=== PATIENT | female | born 1990 | race Caucasian/White ===

== ENCOUNTER 2017-05-28 13:20 | Emergency (ER) | payer BC, OTHER ==
[2017-05-28 13:30] VITALS: BP 110/74
--- NOTE | 2017-05-28 14:23 | UC ---
Complaint Female HPI - HPI Summary HPI Summary: concerned she may have a std.. Had intercourse with a condom 10 days ago---got painful irritation around vagina 5 days ago - History Of Current Complaint Chief Complaint: UCGU Stated Complaint: PERSONAL/BODY ACHES, FEVER Time Seen by Provider: 05/28/17 13:32 Hx Obtained From: Patient Hx Last Menstrual Period: 05/15/17 ?: No Onset/Duration: Sudden Onset, Lasting Days - 5, Still Present Timing: Constant Severity Initially: Moderate Severity Currently: Moderate Character: Burning Aggravating Factor(s): Movement, Urination Alleviating Factor(s): Nothing Associated Signs And Symptoms: Positive: Negative - Allergies/Home Medications Allergies/Adverse Reactions: Allergies Allergy/AdvReac Type Severity Reaction Status Date / Time Amoxicillin AdvReac Rash Verified 05/28/17 13:31 PMH/Surg Hx/FS Hx/Imm Hx Previously Healthy: Yes - Surgical History Surgical History: Yes Surgery Procedure, Year, and Place: Tonsillectomy - Family History Known Family History: Positive: None - Social History Occupation: Employed Full-time Lives: With Family Alcohol Use: Weekly Substance Use Type: None Smoking Status (MU): Light Every Day Tobacco Smoker Amount Used/How Often: 1 pack per week Review of Systems Constitutional: Negative Skin: Other - skin abrasion 4-5 and 7-8 on posterior forchette---patient reports this was never vesicular Eyes: Negative ENT: Negative Respiratory: Negative Cardiovascular: Negative Gastrointestinal: Negative Genitourinary: Negative Motor: Negative Neurovascular: Negative Musculoskeletal: Negative Neurological: Negative Psychological: Negative All Other Systems Reviewed And Are Negative: Yes Physical Exam Triage Information Reviewed: Yes Appearance: Well-Appearing, No Pain Distress, Well-Nourished Vital Signs: Initial Vital Signs Temp 97.8 F 05/28/17 13:24 Pulse 88 05/28/17 13:24 Resp 16 05/28/17 13:24 BP 110/74 05/28/17 13:24 Pulse Ox 100 05/28/17 13:24 Vital Signs Reviewed: Yes Eye Exam: Normal Eyes: Positive: Conjunctiva Clear ENT Exam: Normal ENT: Positive: Normal ENT inspection, Hearing grossly normal, TMs normal. Negative: Nasal congestion, Nasal drainage, Tonsillar swelling, Tonsillar exudate, Trismus, Muffled/hoarse voice Dental Exam: Normal Neck exam: Normal Neck: Positive: Supple, Nontender, No Lymphadenopathy Respiratory Exam: Normal Respiratory: Positive: Chest non-tender, Lungs clear, Normal breath sounds, No respiratory distress, No accessory muscle use Cardiovascular Exam: Normal Cardiovascular: Positive: RRR, No Murmur, Pulses Normal, Brisk Capillary Refill Abdominal Exam: Normal Abdomen Description: Positive: Nontender, No Organomegaly, Soft Bowel Sounds: Positive: Present Musculoskeletal Exam: Normal Musculoskeletal: Positive: Strength Intact, ROM Intact, No Edema Neurological Exam: Normal Neurological: Positive: Alert, Muscle Tone Normal Psychological Exam: Normal Skin Exam: Normal UC Physical Exam Vital Signs On Initial Exam: Initial Vitals Temp Pulse Resp BP Pulse Ox 97.8 F 88 16 110/74 100 05/28/17 13:24 05/28/17 13:24 05/28/17 13:24 05/28/17 13:05/28/17 13:24 - Genitalia Exam Female Genitourinary: Cervix Closed, Vulva: Abrasion - 4-5 and 7-8 posterior forchette Re-Evaluation - Re-Evaluation First Eval Change: Unchanged - tolerated pelvic exam well Complaint Female Dx - Course Course Of Treatment: Affirm, appitma, hsv, ua, ua preg, start valtrex follow at [facility] - Differential Dx/Diagnosis Differential Diagnosis/HQI/PQRI: Appendicitis, Pelvic Inflammatory Disease, Renal Colic, Sexually Transmitted Disease, Urinary Tract Infection 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
--- NOTE | 2017-05-30 07:25 | UC ---
Progress - Progress Note Progress Note: Bacterial vaginosis on testing. Rx sent in. Re-Evaluation - Re-Evaluation First Eval Change: Unchanged - tolerated pelvic exam well
--- NOTE | 2017-05-31 07:09 | UC ---
Progress - Progress Note Progress Note: Bacterial vaginosis on testing. Rx sent in. 05/1717 7:07 am NOTIFY PT UTI MACROBID 100 BID X 7 DAYS ERxED floyd Re-Evaluation - Re-Evaluation First Eval Change: Unchanged - tolerated pelvic exam well
[2017-05-31 20:29] LABS: HS/VZ Source VULVA; Varicella Zoster Result Negative (Negative); Varicella Zoster Source VULVA
== END 2017-05-28 14:43 | disposition home or self-care (01) ==
LOC: UCCORT 13:20
DX: N76.0 Acute vaginitis (principal); F17.210 Nicotine dependence, cigarettes, uncomplicated; Z88.1 Allergy status to other antibiotic agents
CPT/HCPCS: 81003; 84702; 87077; 87086; 87186; 87480; 87491; 87510; 87529; 87591; 87661; 87798; 99202; G0463